=== PATIENT | male | born 1965 | race Caucasian/White ===

== ENCOUNTER 2017-09-18 18:09 | Emergency (ER) | payer SELFPAY ==
[~2017-09-18] VITALS: Wt 73.5 kg
== END 2017-09-18 23:11 | disposition left against medical advice (07) ==
LOC: E/R 18:09
DX: Z53.21 Procedure and treatment not carried out due to patient leaving prior to being seen by health care provider (principal)

== ENCOUNTER 2019-03-31 21:02 | Emergency (ER) | payer OTHER ==
[~2019-03-31] VITALS: Wt 76.6 kg
[2019-03-31] MEDS ORDERED: SOD CHLORIDE 0.9% 1,000 ML IV STA (21:44)
[2019-03-31] MEDS ORDERED: morphine 4 MG/ML VIAL IV STA (21:44)
[2019-03-31] MEDS ORDERED: ONDANSETRON 4 MG INJ IV STA (21:44)
[2019-03-31] MEDS ORDERED: PANTOPRAZOLE 40 MG INJ IV STA (21:44)
[2019-03-31] MEDS ORDERED: PANT40TA3 PO (23:27)
--- NOTE | 2019-03-31 23:30 | ERD ---
ER Documentation Chief Complaint Chief Complaint abdominal pain x 2 weeks, also states been drinking etoh HPI Patient is a 53-year-old male with no medical problems who presents for abdominal pain. The patient said that 2 weeks ago he was pooping blood. He went to [facility] and was admitted at that time. He is complaining of abdominal pain currently. He says "I have a tumor in my abdomen". He also reports gastritis. He has epigastric abdominal pain. He has subjective fevers but has not taken his temperature. Upon review of old medical records the patient one previous visit to the ER in 2017. He does not remember the name of his primary doctor. ROS All systems reviewed and are negative except as per history of present illness. Medications Home Meds Active Scripts Pantoprazole* (Protonix*) 40 Mg Tablet., 40 MG PO DAILY, #20 TAB Prov:SAI AUSTIN MD 03/31/19 Allergies Allergies: Coded Allergies: No Known Drug Allergies (Verified Allergy, Unknown, 03/31/19) PMhx/Soc Medical and Surgical Hx: pt denies Medical Hx, pt denies Surgical Hx Hx Alcohol Use: Yes Hx Substance Use: No Hx Tobacco Use: No Smoking Status: Never smoker FmHx Family History: diabetes Physical Exam Vitals Vital Signs Date Temp Pulse Resp B/P (MAP) Pulse Ox O2 O2 Flow FiO2 Time Delivery Rate 03/31/19 77 22 117/81 94 Room Air 23:00 (93) 03/31/19 85 18 130/89 97 Room Air 22:30 (103) 03/31/19 86 22 111/76 97 Room Air 22:00 (88) 03/31/19 Nasal 21:46 Cannula 03/31/19 97.6 67 20 131/89 100 Room Air 21:40 (103) 03/31/19 97.6 80 20 130/81 100 21:29 (97) Physical Exam Const: No acute distress Head: Atraumatic Eyes: Normal Conjunctiva ENT: Normal External Ears, Nose and Mouth. Neck: Full range of motion. No meningismus. Resp: Clear to auscultation bilaterally Cardio: Regular rate and rhythm, no murmurs Abd: Soft, epigastric tenderness to palpation without rebound or guarding Skin: No petechiae or rashes Back: No midline or flank tenderness Ext: No cyanosis, or edema Neur: Awake and alert Psych: Normal Mood and Affect Result Diagram: 03/31/19214703/31/192147 Results 24 hrs Laboratory Tests Test 03/31/19 21:48 03/31/19 21:49 White Blood Count 6.6 10^3/ul Red Blood Count 4.55 10^6/ul Hemoglobin 14.0 g/dl Hematocrit 40.3 % Mean Corpuscular Volume 88.6 fl Mean Corpuscular Hemoglobin 30.8 pg Mean Corpuscular Hemoglobin Concent 34.7 g/dl Red Cell Distribution Width 13.5 % Platelet Count 184 10^3/UL Mean Platelet Volume 9.7 fl Immature Granulocytes % 0.200 % Neutrophils % 56.2 % Lymphocytes % 35.3 % Monocytes % 6.6 % Eosinophils % 0.8 % Basophils % 0.9 % Nucleated Red Blood Cells % 0.0 /100WBC Immature Granulocytes # 0.010 10^3/ul Neutrophils # 3.7 10^3/ul Lymphocytes # 2.3 10^3/ul Monocytes # 0.4 10^3/ul Eosinophils # 0.1 10^3/ul Basophils # 0.1 10^3/ul Nucleated Red Blood Cells # 0.0 10^3/ul Sodium Level 146 mmol/L Potassium Level 3.8 mmol/L Chloride Level 110 mmol/L Carbon Dioxide Level 21 mmol/L Anion Gap 15 Blood Urea Nitrogen 10 mg/dl Creatinine 0.59 mg/dl Est Glomerular Filtrat Rate mL/min > 60 mL/min Glucose Level 113 mg/dl Calcium Level 8.8 mg/dl Total Bilirubin 0.4 mg/dl Direct Bilirubin 0.00 mg/dl Indirect Bilirubin 0.4 mg/dl Aspartate Amino Transf (AST/SGOT) 59 IU/L Alanine Aminotransferase (ALT/SGPT) 23 IU/L Alkaline Phosphatase 63 IU/L Troponin I < 0.012 ng/ml Total Protein 7.9 g/dl Albumin 4.5 g/dl Globulin 3.40 g/dl Albumin/Globulin Ratio 1.32 Lipase 229 U/L Prothrombin Time 13.7 Sec Prothrombin Time Ratio 1.1 INR International Normalized Ratio 1.04 Activated Partial Thromboplast Time 27.7 Sec Current Medications Medications Dose Sig/Reginaldo Start Time Status Last (Trade) Ordered Route PRN Stop Time Admin Dose Reason Admin Sodium 1,000 ml @ Q1H STAT 03/31/19 DC 03/31/19 Chloride 1,000 mls/hr IV 21:44 03/31/19 21:51 22:43 40 mg ONCE STAT 03/31/19 DC 03/31/19 Pantoprazole IV 21:44 03/31/19 21:50 (Protonix 21:45 Iv) Ondansetron 4 mg ONCE STAT 03/31/19 DC 03/31/19 HCl (Zofran IV 21:44 03/31/19 21:51 Inj) 21:46 Morphine 4 mg ONCE STAT 03/31/19 DC 03/31/19 Sulfate IV 21:44 03/31/19 21:51 (morphine) 21:46 Procedures/MDM EKG read by me: Rate/Rhythm: Regular rate and rhythm at a rate of 82 Intervals: Normal Impression: No evidence of ischemia or arrhythmia CT abdomen and pelvis read by radiology. Patient is a 53-year-old male presents with abdominal pain and reports of GI bl eeding. His hemoglobin is normal and I doubt significant GI bleed at this time. He was recently admitted to [facility] and had a work-up done at that time as well. The patient has a CT scan which shows no sign of significant etiology. I doubt appendicitis, cholecystitis, pancreatitis, or bowel obstruction. The patient will be discharged but will need to follow-up closely with his primary doctor within 24 to 48 hours. He will be given a prescription for Protonix. Departure Diagnosis: Primary Impression: GI bleeding GI bleed type/associated pathology: unspecified gastrointestinal hemorrhage type Qualified Codes: K92.2 - Gastrointestinal hemorrhage, unspecified Additional Impression: Abdominal pain Abdominal location: epigastric Qualified Codes: R10.13 - Epigastric pain Condition: Fair Patient Instructions: When You Have Gastrointestinal (GI) Bleeding, Abdominal Pain Referrals: Your doctor Additional Instructions: Llame al doctor MAANA y karuna mariam ALBINO PARA DENTRO DE 1-2 GUY.Dgale a la secretaria que nosotros le instruimos hacer esta albino.Avise o llame si lyman condicin se empeora antes de la albino. Regresa aqui si peor o no mejor. SAI AUSTIN MD March 31, 2019 23:30
[2019-04-01 00:07] VITALS: BP 120/81; PULSE 80; RESP 22
== END 2019-04-01 00:10 | disposition home or self-care (01) ==
LOC: E/R 21:02
DX: K92.2 Gastrointestinal hemorrhage, unspecified (principal)
CPT/HCPCS: 36415; 71045; 74176; 80053; 83690; 84484; 85025; 85610; 85730; 86850; 86900; 86901; 93005; 96374; 96375; C9113; J2270; J2405; J7030; Z7502